=== PATIENT | female | born 1985 | race Caucasian/White ===

== ENCOUNTER 2016-09-07 23:55 | Emergency (ER) | payer OTHER ==
[2016-09-08] MEDS ORDERED: Phenergan 25 MG INJ IM ONE (00:09)
[2016-09-08] MEDS ORDERED: DILAUDID 1 MG/ML INJECTION IM ONE ×2 (00:09→00:26)
[2016-09-08] MEDS ORDERED: Phenergan 25 MG INJ ONE (00:16)
[2016-09-08] MEDS ORDERED: DILAUDID 1 MG/ML INJECTION ONE (00:16)
--- NOTE | 2016-09-08 00:16 | ERPHSYRPT ---
- History of Present Illness Time Seen by Provider: 09/08/16 00:01 Source: patient Exam Limitations: no limitations Patient Subjective Stated Complaint: pt co right side pain in buttocks down right leg for 12 days she has been going to the chiropractor for therapy withut releif tonight the pain in the leg is worse -she is having difficulty wtih walking -the pain is cramping at times 8/10 Triage Nursing Assessment: pt is awake and alert and able to answer questions Physician History: FOR THE PAST 12 DAYS PT HAS HAD RIGHT SIDED BUTTOCK PAIN RADIATING TO THE RIGHT FOOT; DENIES ANY FEVER, VOMITING, ABDOMINAL PAIN, NUMBNESS. PT HAS A HX OF EPISODIC LOW BACK PAIN. Allergies/Adverse Reactions: No Known Drug Allergies Allergy (Unverified 09/08/16 00:16) Hx Tetanus, Diphtheria Vaccination/Date Given: No Hx Influenza Vaccination/Date Given: No Hx Pneumococcal Vaccination/Date Given: No - Review of Systems Constitutional: No Fever Respiratory: No Dyspnea Cardiac: No Chest Pain Abdominal/Gastrointestinal: No Abdominal Pain, No Vomiting Musculoskeletal: Back Pain All Other Systems: Reviewed and Negative - Past Medical History Pertinent Past Medical History: Yes Other Medical History: MS - Past Surgical History Past Surgical History: Yes Gastrointestinal: Cholecystectomy Female Surgical History: Tubal Ligation, Other Other Surgical History: uterine ablasion - Social History Smoking Status: Current every day smoker Exposure to second hand smoke: No Drug Use: none Patient Lives Alone: No - Female History Hx Last Menstrual Period: present - Nursing Vital Signs Pain Intensity: 8 - Physical Exam General Appearance: alert Eye Exam: PERRL/EOMI Ears, Nose, Throat Exam: pharynx normal, moist mucous membranes Neck Exam: normal inspection Respiratory Exam: lungs clear Cardiovascular Exam: normal heart sounds Gastrointestinal Exam: soft, normal bowel sounds Back Exam: No vertebral tenderness Extremity Exam: normal range of motion, No pedal edema Peripheral Pulses: dorsalis-pedis (R): 3+, dorsalis-pedis (L): 3+ Neurologic Exam: alert, cooperative Skin Exam: warm, dry - Course Nursing assessment & vital signs reviewed: Yes Ordered Tests: Active Orders 24 hr Category Date Time Status HCG,QUALITATIVE URINE Stat Lab 09/08/16 00:30 Completed UA Stat Lab 09/08/16 00:30 Completed Medication Summary Discontinued Medications Generic Name Dose Route Start Last Admin Trade Name Freq PRN Reason Stop Dose Admin Hydromorphone HCl 1 mg 09/08/16 00:09 09/08/16 00:31 Dilaudid 1 Mg/Ml Injection IM 09/08/16 00:10 Not Given STAT ONE Hydromorphone HCl Confirm 09/08/16 00:16 Dilaudid 1 Mg/Ml Injection Administered 09/08/16 00:17 Dose 1 mg .ROUTE .STK-MED ONE Hydromorphone HCl 1 mg 09/08/16 00:26 09/08/16 00:31 Dilaudid 1 Mg/Ml Injection IM 09/08/16 00:27 1 mg STAT ONE Administration Promethazine HCl 25 mg 09/08/16 00:09 09/08/16 00:21 Phenergan 25 Mg Inj IM 09/08/16 00:10 25 mg STAT ONE Administration Promethazine HCl Confirm 09/08/16 00:16 Phenergan 25 Mg Inj Administered 09/08/16 00:17 Dose 25 mg .ROUTE .STK-MED ONE Lab/Rad Data: Laboratory Results 09/08/16 09/08/16 Range/Units 00:30 00:30 Ur Collection Type CATH Urine Color YELLOW (YELLOW) Urine Appearance CLEAR (CLEAR) Urine pH 7.0 (5-6) Ur Specific [place] 1.025 (1.005-1.025) Urine Protein NEGATIVE (Negative) Urine Glucose (UA) NEGATIVE (NEGATIVE) mg/dL Urine Ketones NEGATIVE (NEGATIVE) Urine Nitrite NEGATIVE (NEGATIVE) Urine Bilirubin NEGATIVE (NEGATIVE) Urine Urobilinogen 0.2 (0-1) mg/dL Urine WBC (Auto) NEGATIVE (NEGATIVE) Urine RBC (Auto) NEGATIVE (0-5) Eladio/ul Urine HCG, Qual NEGATIVE (Negative) Specimen Received 09/08/16:0030 - Departure Time of Disposition: 01:05 Departure Disposition: Home Clinical Impression: SCIATICA Condition: Fair Critical Care Time: No Referrals: GRACIELA RICHARDS [Primary Care Provider] - Instructions: Sciatica Additional Instructions: FOLLOW UP WITH PRIVATE DOCTOR TOMORROW. DO NOT LIFT, BEND OR TWIST TORSO. Prescriptions: Naproxen [Naprosyn] 500 mg PO Q12H PRN PRN #20 tablet PRN Reason: Pain
[2016-09-08 00:45] VITALS: O2SAT 98
[2016-09-08 00:46] LABS: COMPLETE URINE MICROSCOPIC? NO; Collection Type CATH
[2016-09-08 02:25] VITALS: BP 110/72; PULSE 72
== END 2016-09-08 01:30 | disposition home or self-care (01) ==
LOC: ED 23:55
DX: M54.30 Sciatica, unspecified side (principal)
CPT/HCPCS: 81002; 84703; 96372; 99283; J1170; J2550; P9612

== ENCOUNTER 2017-12-01 23:26 | Observation (INO) | payer OTHER ==
[2017-12-02] MEDS ORDERED: GI COCKTAIL 45 ML (Maalox/Lidocaine) PO ONE (00:07)
[2017-12-02] MEDS ORDERED: NITRO-BID 2% UD PACKETS TOP ONE (00:07)
--- NOTE | 2017-12-02 00:07 | ERPHSYRPT ---
- History of Present Illness Time Seen by Provider: 12/01/17 23:45 Historian: patient Exam Limitations: clinical condition Patient Subjective Stated Complaint: PT STATES "IT FEELS LIKE SOMEONE KICKED ME IN MY LEFT SHOULDER (POSTERIOR), AND THEN I HAVE MORE OF A BURNING PAIN IN MY LEFT LUNG AREA." PT STATES SHE HAS HAD S/S FOR SEVERAL MONTHS, SEEN HER FAMILY DR IN THE PAST, BUT TODAY HER S/S HAVE INCREASED WITH INTENSITY THROUGHOUT THE DAY SO SHE CAME TO THE ER. Triage Nursing Assessment: PT AMBULATED TO ROOM PER SELF; SKIN P, W, & D; A&O X3 ; NO OBVIOUS DISTRESS NOTED; PT DENIES ANY SOB WITH AMBULATION TO ER ROOM. Physician History: PATIENT WITH A HISTORY OF COPD COMPLAINS OF SUBSTERNAL BURNING DISCOMFORT X 6 MONTHS, NOW HAS RADIATION TO LEFT ARM. DENIES DIAPHORESIS, PALPITATIONS OR DYSPNEA. PATIENT COMPLAINS OF PRODUCTIVE COUGH FOR 2-3 DAYS. STATES HER CHEST PAIN EXACERBATED WITH COUGH AND INSPIRATION. Timing/Duration: week(s) Activities at Onset: none Quality: burning, sharpness Location: central Chest Pain Radiation: arm Severity of Pain-Max: moderate Associated Symptoms: heartburn Nitro Today/Relief: no nitro taken today Aspirin Treatment Today: 81 mg x 4, provided by EMS Allergies/Adverse Reactions: No Known Drug Allergies Allergy (Verified 12/01/17 23:44) Home Medications: No Reportable Medications [No Reported Medications] 12/01/17 [History] Hx Tetanus, Diphtheria Vaccination/Date Given: Yes Hx Influenza Vaccination/Date Given: No Hx Pneumococcal Vaccination/Date Given: Yes Immunizations Up to Date: No - Review of Systems Constitutional: No Fever, No Chills Eyes: No Symptoms Ears, Nose, & Throat: No Symptoms Respiratory: Cough, No Dyspnea Cardiac: No Symptoms, No Chest Pain, No Edema, No Syncope Abdominal/Gastrointestinal: No Symptoms, No Abdominal Pain, No Nausea, No Vomiting, No Diarrhea Genitourinary Symptoms: No Symptoms, No Dysuria Musculoskeletal: No Symptoms, No Back Pain, No Neck Pain Skin: No Rash Neurological: No Dizziness, No Focal Weakness, No Sensory Changes Psychological: No Symptoms Endocrine: No Symptoms All Other Systems: Reviewed and Negative - Past Medical History Pertinent Past Medical History: Yes Other Medical History: MS - Past Surgical History Past Surgical History: Yes Gastrointestinal: Cholecystectomy Musculoskeletal: Other Female Surgical History: Tubal Ligation, Other Other Surgical History: uterine ablasion; spinal surgery - Social History Smoking Status: Current every day smoker How long have you smoked: 14 YEARS Exposure to second hand smoke: No Drug Use: none Patient Lives Alone: No - Female History Hx Last Menstrual Period: 11/29/2017 Hx Now: No - Nursing Vital Signs Nursing Vital Signs: Initial Vital Signs Temperature 98.4 F 12/01/17 23:29 Pulse Rate 88 12/01/17 23:29 Respiratory Rate 16 12/01/17 23:29 Blood Pressure 127/78 12/01/17 23:29 O2 Sat by Pulse Oximetry 100 12/01/17 23:29 Pain Scale Pain Intensity 3 - Physical Exam General Appearance: no apparent distress, alert Eye Exam: PERRL/EOMI, eyes nml inspection Ears, Nose, Throat Exam: normal ENT inspection, moist mucous membranes Neck Exam: normal inspection, non-tender, supple, full range of motion Respiratory Exam: normal breath sounds, lungs clear, No respiratory distress Cardiovascular Exam: regular rate/rhythm, normal heart sounds Gastrointestinal/Abdomen Exam: soft, normal bowel sounds, No tenderness, No mass Back Exam: normal inspection, No CVA tenderness, No vertebral tenderness Extremity Exam: normal inspection, normal range of motion Neurologic Exam: alert, oriented x 3, cooperative, normal mood/affect, sensation nml, No motor deficits Skin Exam: normal color, warm, dry SpO2: 100 Oxygen Delivery: Room Air - Course EKG Interpreted by Me: Sinus Rhythm, NORMAL AXIS - Radiology Exams Chest X-ray Interpretation: Interpreted by me, Negative, No Infiltrates Ordered Tests: Active Orders 24 hr Category Date Time Status Sales Marketing Manager STAT Care 12/02/17 00:20 Active EKG-ER Only STAT Care 12/02/17 00:19 Active Oxygen-ED Only NASAL CANNULA 2 lpm Care 12/02/17 00:19 Active CHEST 1 VIEW (PORTABLE) Stat Exams 12/02/17 00:20 Taken BLOOD CULTURE Stat Lab 12/02/17 01:25 Received CBC W DIFF Stat Lab 12/02/17 00:26 Completed CMP Stat Lab 12/02/17 00:26 Completed D-DIMER QUANTITATION Stat Lab 12/02/17 00:38 Completed PROTIME WITH INR Stat Lab 12/02/17 00:38 Completed TROPONIN Q3H Lab 12/02/17 00:26 Completed TROPONIN Q3H Lab 12/02/17 03:30 Ordered TROPONIN Q3H Lab 12/02/17 06:30 Ordered TROPONIN Q3H Lab 12/02/17 09:30 Ordered TROPONIN Q3H Lab 12/02/17 12:30 Ordered Transfer Order Routine Transfer 12/02/17 Ordered Medication Summary Generic Name Dose Route Start Last Admin Trade Name Freq PRN Reason Stop Dose Admin Sodium Chloride 1,000 mls @ 100 mls/hr 12/02/17 00:30 12/02/17 00:32 Sodium Chloride 0.9% 1000 Ml IV 01/01/18 00:29 100 mls/hr .Q10H JULIAN Administration Azithromycin 500 mg in 250 mls @ 250 mls/hr 12/02/17 01:22 Zithromax 500 Mg/ 250 Ml Nacl Premix IV 12/02/17 02:21 STAT STA Discontinued Medications Generic Name Dose Route Start Last Admin Trade Name Freq PRN Reason Stop Dose Admin Al Hydrox/Mg Hydrox/Simethicone Confirm 12/02/17 00:17 Maalox Es 30 Ml Unit Dose Administered 12/02/17 00:18 Dose 30 ml .ROUTE .STK-MED ONE Aspirin 324 mg 12/02/17 00:19 12/02/17 00:26 Baby Aspirin 81 Mg Chew PO 12/02/17 00:20 324 mg STAT ONE Administration Ceftriaxone Sodium/Dextrose 1 g in 50 mls @ 100 mls/hr 12/02/17 01:22 Rocephin 1 Gm-D5w 50 Ml Bag IV 12/02/17 01:51 STAT STA Lidocaine HCl Confirm 12/02/17 00:17 Xylocaine Hcl Viscous * Administered 12/02/17 00:18 Dose 15 ml .ROUTE .STK-MED ONE Magnesium Hydroxide 45 ml 12/02/17 00:07 12/02/17 00:18 Gi Cocktail 45 Ml (Maalox/Lidocaine) PO 12/02/17 00:08 45 ml STAT ONE Administration Nitroglycerin 1 gm 12/02/17 00:07 12/02/17 00:18 Nitro-Bid 2% Ud Packets TOP 12/02/17 00:08 1 gm STAT ONE Administration Nitroglycerin Confirm 12/02/17 00:12 Nitro-Bid 2% Ud Packets Administered 12/02/17 00:13 Dose 1 gm .ROUTE .STK-MED ONE Nitroglycerin 0.4 mg 12/02/17 00:19 12/02/17 00:26 Nitrostat 0.4 Mg (Ed) SL 12/02/17 00:20 0.4 mg STAT ONE Administration Lab/Rad Data: Laboratory Result Diagrams 12/02/17 00:26 12/02/17 00:26 Laboratory Results 12/02/17 12/02/17 12/02/17 Range/Units 00:38 00:26 00:26 WBC (4.0-10.5) K/mm3 RBC (4.1-5.4) M/mm3 Hgb (12.0-16.0) gm/dl Hct (35-47) % MCV (78-100) fl MCH (26-32) pg MCHC (32-36) g/dl RDW (11.5-14.0) % Plt Count (150-450) K/mm3 MPV (6-9.5) fl Gran % (36.0-66.0) % Eos # (Auto) (0-0.5) Absolute Lymphs (auto) (1.0-4.6) Absolute Monos (auto) (0.0-1.3) Lymphocytes % (24.0-44.0) % Monocytes % (0.0-12.0) % Eosinophils % (0.00-5.0) % Basophils % (0.0-0.4) % Absolute Granulocytes (1.4-6.9) Basophils # (0-0.4) PT 11.7 (9.95-12.35) SECONDS INR 1.05 (0.8-3.0) D-Dimer 215.89 (215-500) ng/mL Sodium 142 (137-145) mmol/L Potassium 3.9 (3.5-5.1) mmol/L Chloride 104 (98-107) mmol/L Carbon Dioxide 26 (22-30) mmol/L Anion Gap 16.0 H (5-15) MEQ/L BUN 13 (7-17) mg/dL Creatinine 0.57 (0.52-1.04) mg/dL Estimated GFR > 60.0 ML/MIN Glucose 101 (74-106) mg/dL Calcium 9.8 (8.4-10.2) mg/dL Total Bilirubin 0.20 (0.2-1.3) mg/dL AST 30 (14-36) U/L ALT 21 (0-35) U/L Alkaline Phosphatase 89 (38-126) U/L Troponin I < 0.012 (0.000-0.034) ng/mL Serum Total Protein 7.6 (6.3-8.2) g/dL Albumin 4.7 (3.5-5.0) g/dL 12/02/17 Range/Units 00:26 WBC 14.4 H (4.0-10.5) K/mm3 RBC 4.96 (4.1-5.4) M/mm3 Hgb 15.8 (12.0-16.0) gm/dl Hct 47.3 H (35-47) % MCV 95.4 (78-100) fl MCH 31.9 (26-32) pg MCHC 33.4 (32-36) g/dl RDW 13.1 (11.5-14.0) % Plt Count 251 (150-450) K/mm3 MPV 11.2 H (6-9.5) fl Gran % 72.8 H (36.0-66.0) % Eos # (Auto) 0.11 (0-0.5) Absolute Lymphs (auto) 3.01 (1.0-4.6) Absolute Monos (auto) 0.76 (0.0-1.3) Lymphocytes % 21.0 L (24.0-44.0) % Monocytes % 5.3 (0.0-12.0) % Eosinophils % 0.8 (0.00-5.0) % Basophils % 0.1 (0.0-0.4) % Absolute Granulocytes 10.46 H (1.4-6.9) Basophils # 0.02 (0-0.4) PT (9.95-12.35) SECONDS INR (0.8-3.0) D-Dimer (215-500) ng/mL Sodium (137-145) mmol/L Potassium (3.5-5.1) mmol/L Chloride (98-107) mmol/L Carbon Dioxide (22-30) mmol/L Anion Gap (5-15) MEQ/L BUN (7-17) mg/dL Creatinine (0.52-1.04) mg/dL Estimated GFR ML/MIN Glucose (74-106) mg/dL Calcium (8.4-10.2) mg/dL Total Bilirubin (0.2-1.3) mg/dL AST (14-36) U/L ALT (0-35) U/L Alkaline Phosphatase (38-126) U/L Troponin I (0.000-0.034) ng/mL Serum Total Protein (6.3-8.2) g/dL Albumin (3.5-5.0) g/dL - Progress Progress: improved Progress Note: 12/02/17 00:23 IV NORMAL SALINE 100ML/HR, CHEWABLE 4 BABY ASA ORALLY, NTG 0.4MG SL, MODERATE RELIEF PAIN SCALE IMPROVED 7/10 TO 2/10, APPLICATION NITROPASTE 1 GM ANTERIOR CHEST WALL, GI COCKTAIL GIVEN. Blood Culture(s) Obtained: Yes Antibiotics given: Yes Discussed with Dr.: Huitron (DISCUSSED WITH DR HUITRON AT 0130 FOR OBSERVATION) - Departure Time of Disposition: 02:00 Departure Disposition: Observation Clinical Impression: ATYPICAL CHEST PAIN, EXACERBATION COPD Condition: Stable Critical Care Time: No Referrals: GRACIELA RICHARDS [Primary Care Provider] -
[2017-12-02] MEDS ORDERED: NITRO-BID 2% UD PACKETS ONE (00:12)
[2017-12-02] MEDS ORDERED: XYLOCAINE HCl Viscous ONE (00:17)
[2017-12-02] MEDS ORDERED: MAALOX ES 30 ML UNIT DOSE ONE (00:17)
[2017-12-02] MEDS ORDERED: Nitrostat 0.4 MG (ED) SL ONE (00:19)
[2017-12-02] MEDS ORDERED: BABY ASPIRIN 81 MG CHEW PO ONE (00:19)
[2017-12-02] MEDS ORDERED: Sodium Chloride 0.9% 1000 ML 1,000 ML ONE (00:29)
[2017-12-02] MEDS ORDERED: Sodium Chloride 0.9% 1000 ML 1,000 ML IV SCH (00:30)
[2017-12-02 00:51] LABS: BASOPHIL % 0.1 % (0.0-0.4); Basophil (Absolute #) 0.02 (0-0.4); Eosinophil % 0.8 % (0.00-5.0); Eosinophil (Absolute #) 0.11 (0-0.5); Granulocyte Absolute (ANC) 10.46 (1.4-6.9); Granulocytes % 72.8 % (36.0-66.0); Hematocrit 47.3 % (35-47); Hemoglobin 15.8 gm/dl (12.0-16.0); Lymphocyte (Absolute #) 3.01 (1.0-4.6); Mean Cell Volume 95.4 fl (78-100); Mean Corpuscular Hemoglobin 31.9 pg (26-32); Mean Corpuscular Hgb Concent. 33.4 g/dl (32-36); Mean Platelet Volume 11.2 fl (6-9.5); Monocyte (Absolute #) 0.76 (0.0-1.3); Monocytes % 5.3 % (0.0-12.0); Platelet Count 251 K/mm3 (150-450); Red Blood Count 4.96 M/mm3 (4.1-5.4); Red Cell Distribution Width 13.1 % (11.5-14.0); White Blood Count 14.4 K/mm3 (4.0-10.5)
[2017-12-02 00:56] LABS: ALBUMIN 4.7 g/dL (3.5-5.0); ALKALINE PHOSPHATASE 89 U/L (38-126); BLOOD UREA NITROGEN 13 mg/dL (7-17); CHLORIDE 104 mmol/L (98-107); Calcium 9.8 mg/dL (8.4-10.2); Carbon Dioxide 26 mmol/L (22-30); Creatinine 1 0.57 mg/dL (0.52-1.04); Glucose 101 mg/dL (74-106); Potassium 3.9 mmol/L (3.5-5.1); SGOT/AST 30 U/L (14-36); SGPT/ALT 21 U/L (0-35); SODIUM 142 mmol/L (137-145); Total Protein 7.6 g/dL (6.3-8.2)
[2017-12-02 01:03] LABS: INR 1.05 (0.8-3.0)
[2017-12-02 01:04] LABS: D-DIMER QUANTITATION 215.89 ng/mL (215-500)
[2017-12-02] MEDS ORDERED: Zithromax 500 MG/ 250 ML NaCl Premix 500 MG/250 ML IVPB IV STA (01:22)
[2017-12-02] MEDS ORDERED: ROCEPHIN 1 Gm-D5w 50 ml Bag** 1 G/50 ML IVPB IV STA (01:22)
[2017-12-02] MEDS ORDERED: Sodium Chloride 0.9% 100 ML IVPB 100 ML IV ONE (02:02)
[2017-12-02] MEDS ORDERED: Rocephin 1000 MG INJ ONE (02:02)
[2017-12-02] MEDS ORDERED: MILK OF MAGNESIA 30 ML PO PRN (04:17)
[2017-12-02] MEDS ORDERED: DUONEB 0.5-3 MG/3 ml Neb IH PRN (04:17)
[2017-12-02] MEDS ORDERED: MAALOX ES 30 ML UNIT DOSE PO PRN (04:17)
[2017-12-02] MEDS ORDERED: Senokot-S Tablet PO PRN (04:17)
[2017-12-02] MEDS ORDERED: Zofran 4 MG/2 ML VIAL IV PRN (04:17)
[2017-12-02] MEDS ORDERED: Nitrostat 0.4 MG Tablet SL PRN (04:17)
[2017-12-02] MEDS ORDERED: TYLENOL 325 MG PO PRN (04:17)
[2017-12-02] MEDS ORDERED: NITRO-BID 2% UD PACKETS TOP SCH (06:00)
[2017-12-02 07:36] VITALS: BP 110/63; PULSE 70; O2SAT 98
[2017-12-02] MEDS ORDERED: TORAdol 30 mg Injection IV PRN (08:23)
--- NOTE | 2017-12-02 08:29 | PCM.SSS ---
History of Present Illness - Chief Complaint Chief Complaint: ATYPICAL CHEST PAIN History of Present Illness: is a 32 year old femal pt of mine from [facility], has been having L sided chest pain radiating to L shoulder for some time (well over a month) - generally sharp, intermittent, up to 7/10. This pain was burning and constant 6 /10 yesterday in L chest since 8 am so she came to ER, was ruled out for AK and given 1 dose rocephin and zithromax. CXR nl. 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 Dr. Zamorano's nurse practitioner dx her with COPD and PNA and gave her augmentin x 10d, but she was only able to tolerate 7d of this (finished the abx 2 weeks ago). Pt was supposed to be checked for [id number] deficiency but she has not had the blood test done yet. She would like to quit smoking. - Review of Systems Respiratory: Cough (some production of sputum) Cardiac: Chest Pain All Other Systems: Reviewed and Negative Medications & Allergies Home Medications: Home Medication List Albuterol Sulfate [Albuterol Sulfate Hfa] 8.5 gm IH Q4H PRN #1 hfa.aer.ad [Rx] Cefdinir 300 mg [Omnicef 300 mg] 300 mg PO BID #20 capsule 12/02/17 [Rx] Patient Own Med [Patient Own Medication] 2 tab PO BID 12/02/17 [History Confirmed 12/02/17] Varenicline Tartrate [Chantix] 1 each PO DAILY #1 tab.ds.pk 12/02/17 [Rx] Allergies/Adverse Reactions: Allergies Allergy/AdvReac Type Severity Reaction Status Date / Time No Known Drug Allergies Allergy Verified 12/01/17 23:44 - Past Medical History Past Medical History: Yes Neurological History: No Pertinent History ENT History: No Pertinent History Cardiac History: No Pertinent History Respiratory History: COPD, Pneumonia Endocrine Medical History: No Pertinent History Musculoskelatal History: No Pertinent History GI Medical History: No Pertinent History History: No Pertinent History Pyscho-Social History: No Pertinent History Reproductive Disorders: No Pertinent History Comment: MS-patient states does not currently have. had it for about 5 years and it disappeared. meningitis 2000 - Female History Hx Last Menstrual Period: 11/29/2017 Are you now?: No (tubal) - Past Surgical History Past Surgical History: Yes Neuro Surgical History: No Pertinent History Cardiac History: No Pertinent History Respiratory Surgery: No Pertinent History GI Surgical History: Cholecystectomy Genitourinary Surgical Hx: No Pertinent History Musculskeletal Surgical Hx: Other Female Surgical History: Tubal Ligation, Other Other Surgical History: uterine ablasion; spinal surgery, half of thryroid removed 2003 - Social History Smoking Status: Current every day smoker How long have you smoked: 14 years Exposure to second hand smoke: Yes Alcohol: None Drug Use: none - Physical Exam Vital Signs: Vital Signs - 24 hr Temp Pulse Resp BP Pulse Ox 12/02/17 07:35 98.2 F 70 18 110/63 98 12/02/17 05:20 71 16 97 12/02/17 04:30 97.8 F 63 18 122/69 97 12/02/17 02:05 100 12/02/17 00:35 84 13 107/65 99 12/01/17 23:29 98.4 F 88 16 127/78 100 Oxygen-Last 24 hours O2 Percentage 2 Liters = 28% O2 Percentage 2 Liters = 28% General Appearance: no apparent distress, alert Neurologic Exam: oriented x 3, cooperative Eye Exam: eyes nml inspection Ears, Nose, Throat Exam: moist mucous membranes Neck Exam: normal inspection, non-tender, No lymphadenopathy Respiratory Exam: normal breath sounds, lungs clear, No crackles/rales, No rhonchi, No wheezing Cardiovascular Exam: regular rate/rhythm, normal heart sounds, No murmur Gastrointestinal/Abdomen Exam: soft, normal bowel sounds, No tenderness, No distention, No mass, No guarding, No rebound Back Exam: normal inspection, No rash Extremity Exam: normal inspection, No pedal edema, No swelling Skin Exam: normal color, warm, dry, No rash Results - Labs Lab/Micro Results: Lab Results-Last 24 Hours 12/02/17 Range/Units 06:33 Troponin I < 0.012 (0.000-0.034) ng/mL - Other Procedures and Tests Respiratory Therapy 12/02/17 05:20 Respiratory Nebulizer UD 12/03/17 05:00 EKG ROUTINE 12/04/17 05:00 EKG ROUTINE 12/05/17 05:00 EKG ROUTINE Assessment/Plan (1) Chest pain Current Visit: Yes Status: Acute Qualifiers: Chest pain type: unspecified Qualified Code(s): R07.9 - Chest pain, unspecified Assessment & Plan: Troponins are negative x 3; with the time course of her pain, AK has effectively been ruled out. EKG no acute changes. Trying toradol today in the event she has some pleurisy. Code(s): R07.9 - CHEST PAIN, UNSPECIFIED (2) Tobacco abuse Current Visit: Yes Status: Acute Assessment & Plan: Will start chantix on discharge Code(s): Z72.0 - TOBACCO USE (3) COPD (chronic obstructive pulmonary disease) Current Visit: Yes Status: Acute Qualifiers: Chronic bronchitis type: unspecified Assessment & Plan: per pulmonology, thank you. Will go ahead and treat with 10d of cefdinir, but would like for her to f/u with pulmonology in the next week or two (instead of her regularly scheduled appt in December). Hospital Summary - Vitals & Intake/Output Vital Signs: Vital Signs Temperature 98.2 F 12/02/17 07:35 Pulse Rate 70 12/02/17 07:35 Respiratory Rate 18 12/02/17 07:35 Blood Pressure 110/63 12/02/17 07:35 O2 Sat by Pulse Oximetry 98 12/02/17 07:35 Oxygen-Last Documented O2 Percentage 2 Liters = 28% Intake & Output: Intake & Output 11/29/17 11/30/17 12/01/17 12/02/17 11:59 11:59 11:59 11:59 Weight 123.1 kg - Lab Result Diagrams: 12/02/17 00:26 12/02/17 00:26 Lab Results-Last 24 Hrs: Lab Results-Last 24 Hours 12/02/17 Range/Units 06:33 Troponin I < 0.012 (0.000-0.034) ng/mL - Procedures and Test Procedures and Tests throughout Hospitalization: Therapy Orders & Screens 12/02/17 04:48 Smoking Cessation Education ONCE Comment: Diagnosis: ATYPICAL CHEST PAIN Smoking Status: Current every day smoker How long have you smoked: 14 years Approximately how many cigarettes per day: less than 1/2 pack 12/02/17 05:20 Respiratory Nebulizer UD Comment: DUONEB Q4PRN Diagnosis: ATYPICAL CHEST PAIN 12/02/17 07:11 EKG ROUTINE Comment: Diagnosis: ATYPICAL CHEST PAIN 12/03/17 05:00 EKG ROUTINE Comment: Diagnosis: ATYPICAL CHEST PAIN 12/04/17 05:00 EKG ROUTINE Comment: Diagnosis: ATYPICAL CHEST PAIN 12/05/17 05:00 EKG ROUTINE Comment: Diagnosis: ATYPICAL CHEST PAIN - Discharge Disposition: Home, Self-Care Condition: Good Prescriptions: New Albuterol Sulfate [Albuterol Sulfate Hfa] 8.5 gm IH Q4H PRN #1 hfa.aer.ad PRN Reason: Cough Varenicline Tartrate [Chantix] 1 each PO DAILY #1 tab.ds.pk Cefdinir 300 mg [Omnicef 300 mg] 300 mg PO BID #20 capsule Continue Patient Own Med [Patient Own Medication] 2 tab PO BID Follow up with: GRACIELA RICHARDS [Primary Care Provider] - 1 Week
--- NOTE | 2017-12-02 09:08 | XRAY ---
Indication: Dyspnea. Comparison: September 23, 2017. Portable apical lordotic chest again demonstrates normal heart, lungs, and bony thorax with incidental lower neck surgical clips.
[2017-12-02] MEDS ORDERED: Zithromax 500 MG/ 250 ML NaCl Premix 500 MG/250 ML IVPB IV SCH (10:00)
[2017-12-02] MEDS ORDERED: Ecotrin 325 MG PO SCH (10:00)
[2017-12-02] MEDS ORDERED: ROCEPHIN 1 Gm-D5w 50 ml Bag** 1 G/50 ML IVPB IV SCH (22:00)
[2017-12-03] MEDS ORDERED: Zithromax 500 MG/ 250 ML NaCl Premix 500 MG/250 ML IVPB IV SCH (06:00)
== END 2017-12-02 11:10 | disposition home or self-care (01) ==
LOC: ED 23:26 → MED SURG 12-02 03:52 → INTOOBSV 12-02 03:52
PROVIDERS: ADMIT Family Medicine; ATTEND Family Medicine
DX: R07.9 Chest pain, unspecified (principal); Z72.0 Tobacco use; J44.1 Chronic obstructive pulmonary disease with (acute) exacerbation
CPT/HCPCS: 36000; 36415; 71045; 80053; 84484; 85025; 85379; 85610; 87040; 93005; 93041; 93268; 94760; 96360; 96361; 99284; 99285; J0456; J0696; J1885; A9270-GY; G0378

== ENCOUNTER 2025-06-19 10:35 | Observation (INO) | payer BC ==
--- NOTE | 2025-06-19 12:08 | ERPHSYRPT ---
- History of Present Illness Patient Subjective Stated Complaint: Pt. states, "I have had some pain my right side on and off for a few weeks but 4 days ago I started having pain in my rt. lower abdomen and it just keeps getting worse. It hurts worse when i'm moving around." Triage Nursing Assessment: Pt. ambulated to room without difficulty, A&Ox4, Skin P/W/D, Resp. even unlabored, abdomen soft, rebound tenderness in rt. lower quad., Physician History: Abdominal pain, onset of symptoms several weeks but progressively worse over the last 4 days, she denies any urinary symptoms including dysuria, she had any change in her bowels, Denies fever, Denies new vaginal discharge Timing/Duration: day(s) (4) Activities at Onset: none Abdominal Pain Onset Location: RLQ Pain Radiation: no radiation Severity of Pain-Max: moderate Severity of Pain-Current: moderate Modifying Factors: Improves With: nothing Associated Symptoms: denies symptoms Allergies/Adverse Reactions: No Known Drug Allergies Allergy (Verified 12/01/17 23:44) Home Medications: No Reportable Medications [No Reported Medications] 06/19/25 [History] Hx Tetanus, Diphtheria Vaccination/Date Given: Yes Hx Influenza Vaccination/Date Given: No Hx Pneumococcal Vaccination/Date Given: Yes Travel Risk - International Travel Have you traveled outside of the country in past 3 weeks: No - Emerging Infectious Disease Are you exhibiting symptoms associated with any current EIDs: No - Past Medical History Pertinent Past Medical History: Yes Neurological History: No Pertinent History ENT History: No Pertinent History Cardiac History: No Pertinent History Respiratory History: COPD Endocrine Medical History: No Pertinent History Musculoskeletal History: Degenerative Disk Disease GI Medical History: No Pertinent History History: No Pertinent History Psycho-Social History: No Pertinent History Female Reproductive Disorders: No Pertinent History Other Medical History: MS-patient states does not currently have. had it for about 5 years and it disappeared. meningitis 2000 - Past Surgical History Past Surgical History: Yes Neuro Surgical History: No Pertinent History Cardiac: No Pertinent History Respiratory: No Pertinent History Gastrointestinal: Cholecystectomy Genitourinary: No Pertinent History Musculoskeletal: Other Female Surgical History: Tubal Ligation, Other Other Surgical History: uterine ablasion; spinal surgery, half of thryroid removed 2003 - Female History Hx Last Menstrual Period: LAST MONTH Hx Now: No - Social History Smoking Status: Former smoker Exposure to second hand smoke: Yes Drug Use: none - Social Determinants of Health Will the patient participate in the screening: Declined to provide - Nursing Vital Signs Nursing Vital Signs: Initial Vital Signs Temperature 97.7 F 06/19/25 10:35 Pulse Rate 81 06/19/25 10:35 Respiratory Rate 18 06/19/25 10:35 Blood Pressure 110/68 06/19/25 10:35 O2 Sat by Pulse Oximetry 96 06/19/25 10:35 Pain Scale Pain Intensity 5 - Physical Exam General Appearance: no apparent distress, alert, obese Eye Exam: PERRL/EOMI, eyes nml inspection Ears, Nose, Throat Exam: normal ENT inspection, pharynx normal, moist mucous membranes Neck Exam: normal inspection, non-tender, supple, full range of motion Respiratory Exam: normal breath sounds, lungs clear, No respiratory distress Cardiovascular Exam: regular rate/rhythm, normal heart sounds Gastrointestinal/Abdomen Exam: soft, tenderness, No mass, No guarding, No rebound Back Exam: normal inspection, normal range of motion, No CVA tenderness, No vertebral tenderness Extremity Exam: normal inspection, normal range of motion, pelvis stable Neurologic Exam: alert, oriented x 3, cooperative, normal mood/affect, nml cerebellar function, sensation nml, No motor deficits Skin Exam: normal color, warm, dry SpO2 Interpretation: normal SpO2: 97 Ordered Tests: Active Orders 24 hr Category Date Time Status IV Insertion STAT Care 06/19/25 11:48 Active ABDOMEN AND PELVIS W CONTRAST [CT] Stat Exams 06/19/25 11:49 Completed CBC W DIFF Stat Lab 06/19/25 12:15 Completed CMP Stat Lab 06/19/25 12:15 Completed LIPASE Stat Lab 06/19/25 12:15 Completed UA W/RFX UR CULTURE Stat Lab 06/19/25 11:49 Completed Medication Summary Discontinued Medications Generic Name Dose Route Start Last Admin Trade Name Freq PRN Reason Stop Dose Admin Morphine Sulfate 4 mg 06/19/25 14:06 06/19/25 14:18 Morphine Sulfate 4 Mg/Ml Injection IV 06/19/25 14:07 4 mg STAT ONE Administration Morphine Sulfate Confirm 06/19/25 14:14 Morphine Sulfate 4 Mg/Ml Injection Administered 06/19/25 14:15 Dose 4 mg .ROUTE .STK-MED ONE Ondansetron HCl 4 mg 06/19/25 14:06 06/19/25 14:17 Ondansetron Hcl 4 Mg/2 Ml Vial IV 06/19/25 14:07 4 mg STAT ONE Administration Ondansetron HCl Confirm 06/19/25 14:14 Ondansetron Hcl 4 Mg/2 Ml Vial Administered 06/19/25 14:15 Dose 4 mg .ROUTE .STK-MED ONE Lab/Rad Data: Laboratory Result Diagrams 06/19/25 12:15 06/19/25 12:15 Laboratory Results 06/19/25 06/19/25 06/19/25 Range/Units 12:15 12:15 11:49 WBC 10.4 H (3.98-10.04) x10^3/uL RBC 4.92 (3.93-5.22) x10^6/uL Hgb 14.6 (11.2-15.7) g/dL Hct 46.0 H (34.1-44.9) % MCV 93.5 (79.4-94.8) fL MCH 29.7 (25.6-32.2) pg MCHC 31.7 L (32.2-35.5) g/dL RDW 12.8 (11.7-14.4) % Plt Count 272 (182-369) x10^3/uL MPV 9.7 (9.4-12.3) fL Gran % 73.6 H (34.0-71.1) % Immature Gran % (Auto) 0.2 (0.001-0.429) % Nucleat RBC Rel Count 0.0 (0.00-0.2) % Eos # (Auto) 0.15 (0.04-0.36) x10^3/uL Immature Gran # (Auto) 0.02 (0.001-0.031) x10^3u/L Absolute Lymphs (auto) 1.98 (1.18-3.74) x10^3/uL Absolute Monos (auto) 0.56 (0.24-0.86) x10^3/uL Absolute Nucleated RBC 0.00 (0.00-0.012) x10^3u/L Lymphocytes % 19.1 L (19.3-51.7) % Monocytes % 5.4 (4.7-12.5) % Eosinophils % 1.4 (0.7-5.8) % Basophils % 0.3 (0.1-1.2) % Absolute Granulocytes 7.62 H (1.56-6.13) x10^3/uL Basophils # 0.03 (0.01-0.08) x10^3/uL Sodium 135 (135-145) mmol/L Potassium 4.0 (3.5-5.1) mmol/L Chloride 106 (98-107) mmol/L Carbon Dioxide 23 (22-30) mmol/L Anion Gap 10.0 (5-15) MEQ/L BUN 11 (7-17) mg/dL Creatinine 0.55 (0.52-1.04) mg/dL Estimated GFR 120.3 ML/MIN Glucose 101 (74-106) mg/dL Calcium 8.9 (8.4-10.2) mg/dL Total Bilirubin 0.40 (0.2-1.3) mg/dL AST 30 (14-36) U/L ALT 37 H (0-35) U/L Alkaline Phosphatase 112 (38-126) U/L Serum Total Protein 7.6 (6.3-8.2) g/dL Albumin 4.5 (3.5-5.0) g/dL Lipase 40 (23-300) U/L Urine Color Yellow (Yellow) Urine Appearance Clear (Clear) Urine pH 5.5 (4.6-8.0) Ur Specific [place] 1.010 (1.005-1.030) Urine Protein Negative (Negative) Urine Glucose (UA) Negative (Negative) mg/dL Urine Ketones Negative (Negative) Urine Blood Negative (Negative) Urine Nitrite Negative (Negative) Urine Bilirubin Negative (Negative) Urine Urobilinogen 0.2 (0.2) mg/dL Ur Leukocyte Esterase Negative (Negative) U Hyaline Cast (Auto) NONE SEEN (0-2) /LPF Urine Microscopic RBC 0-2 (0-5) /HPF Urine Microscopic WBC 0-2 (0-5) /HPF Ur Epithelial Cells Few (None Seen) /HPF Urine Bacteria None Seen (None Seen) /HPF Urine Culture Reflexed NO (NO) - Progress Progress Note: 06/19/25 14:[address] and lab results, consulted general surgery, [facility] - Departure Departure Disposition: Observation Clinical Impression: Appendicitis, acute Qualifiers: Acute appendicitis type: unspecified acute appendicitis type Qualified Code(s): K35.80 - Unspecified acute appendicitis Condition: Stable Critical Care Time: No Referrals: GRACIELA JARAMILLO [Primary Care Provider, [facility]] - Follow up/PCP as directed
[2025-06-19 12:16] LABS: BASOPHIL % 0.3 % (0.1-1.2); Basophil (Absolute #) 0.03 x10^3/uL (0.01-0.08); Eosinophil (Absolute #) 0.15 x10^3/uL (0.04-0.36); Hematocrit 46.0 % (34.1-44.9); Hemoglobin 14.6 g/dL (11.2-15.7); IMMATURE GRAN # 0.02 x10^3u/L (0.001-0.031); IMMATURE GRAN % 0.2 % (0.001-0.429); Lymphocyte (Absolute #) 1.98 x10^3/uL (1.18-3.74); Mean Corpuscular Hemoglobin 29.7 pg (25.6-32.2); Mean Corpuscular Hgb Concent. 31.7 g/dL (32.2-35.5); Monocyte (Absolute #) 0.56 x10^3/uL (0.24-0.86); NUCLEATED RBC # 0.00 x10^3u/L (0.00-0.012); NUCLEATED RBC % 0.0 % (0.00-0.2); Platelet Count 272 x10^3/uL (182-369); Red Blood Count 4.92 x10^6/uL (3.93-5.22); White Blood Count 10.4 x10^3/uL (3.98-10.04)
[2025-06-19 12:44] LABS: Calcium 8.9 mg/dL (8.4-10.2); Carbon Dioxide 23.0 mmol/L (22-30); Creatinine 1 0.55 mg/dL (0.52-1.04); EST GLOMERULAR FILTRATION RATE 120.3 ML/MIN; Glucose 101.0 mg/dL (74-106); Potassium 4.0 mmol/L (3.5-5.1); SGOT/AST 30.0 U/L (14-36); SGPT/ALT 37.0 U/L (0-35); Total Protein 7.6 g/dL (6.3-8.2)
[2025-06-19 13:00] LABS: Glucose, Urine Negative (Negative); Protein,Urine Dip Negative (Negative); RBC 0-2 /HPF (0-5); WBC 0-2 /HPF (0-5)
[2025-06-19] MEDS ORDERED: MORPHINE SULFATE 4 MG INJ ONE (14:14)
[2025-06-19] MEDS ORDERED: Zofran 4 MG/2 ML VIAL ONE (14:14)
[2025-06-19] MEDS: Zofran 4 MG/2 ML VIAL IV ONE (14:17)
[2025-06-19] MEDS: MORPHINE SULFATE 4 MG INJ IV ONE (14:18)
--- NOTE | 2025-06-19 14:21 | XRAY ---
CLINICAL HISTORY: rlq abd pain COMPARISON: No prior studies are available for comparison. TECHNIQUE: CT of the abdomen and pelvis was performed with and without contrast, using the following protocol: axial images with reconstructed coronal and sagittal images. 80 cc isovue intravenous contrast was administered. One of the following dose reduction techniques was utilized for this exam: automated exposure control, adjustment of the mA and/or kV according to patient size, and use of iterative reconstruction. DLP: 2774.66 mGy.cm FINDINGS: Abdomen: Liver: The liver is mildly enlarged in size and shows homogeneous low attenuation, with a [place] tail variant. No focal lesions, cysts, or masses are identified. The hepatic vasculature and biliary ducts are unremarkable. Gallbladder and Biliary System: The gallbladder has been surgically removed, with noted operative bed surgical clips. The common bile duct is normal in caliber and shows no dilation. Pancreas: The pancreatic head, body, and tail are visualized and appear normal in size and density. No pancreatic masses or calcifications are noted. The pancreatic duct is not dilated. Spleen: The spleen is normal in size, shape, and density. No splenic lesions or masses are identified. Appendix: The appendix is mildly enlarged in size, measuring about 9 mm in caliber, and shows smudging of the periappendiceal fat planes with a few small reactive regional lymph nodes. There is no evidence of appendiceal abscess or perforation. Kidneys and Adrenal Glands: Both kidneys are normal in size, shape, and position. The cortical thickness is within normal limits. No renal calculi or hydronephrosis are present. The left kidney shows an upper pole exophytic lesion with fat density, measuring about 3.7 x 2.7 cm. The adrenal glands are unremarkable with no evidence of masses or hyperplasia. Pelvis: Urinary Bladder: The urinary bladder is normal in contour and wall thickness. No intraluminal lesions are identified. Uterus: The uterus is normal in size and contour. No masses or abnormal thickening are seen. Ovaries: The ovaries are not well visualized, but no gross abnormalities are noted. Peritoneal and Retroperitoneal Structures: No free fluid or abnormal fluid collections are identified within the abdomen or pelvis. Bowel: The visualized bowel loops are normal in caliber and appearance. There is no evidence of bowel obstruction or wall thickening. There is non-complicated sigmoid diverticulosis. Bones and Soft Tissues: The pelvic bones and soft tissues are unremarkable. No fractures or abnormal masses are identified. There is mild retrolisthesis of the L4 over the L5 vertebral body and narrowing of the L4-L5 intervertebral disc with vacuum phenomena. Small nodules are seen in the right lower lung lobe, with a small calcified granuloma and a calcified posterior mediastinal lymph node. IMPRESSION: 1. The appendix is mildly enlarged in size, showing smudging of the periappendiceal fat planes and a few small reactive regional lymph nodes, suggesting non-complicated acute appendicitis. Correlation with clinical and laboratory findings is recommended. 2. Mild fatty hepatomegaly. 3. Left renal upper pole exophytic lesion with fat density, likely angiomyolipoma. 4. Small nodules in the right lower lung lobe, a small calcified granuloma, and a calcified posterior mediastinal lymph node. 5. Non-complicated sigmoid diverticulosis. Electronically Signed by: Efe Peres MD. (06/19/2025 14:20:34 EST)
--- NOTE | 2025-06-19 16:17 | PCM.HP ---
History of Present Illness - Chief Complaint Chief Complaint: appendicitis Date: 06/19/25 History of Present Illness: is a 39 year old female with a pmhx of COPD (on RA at baseline), and prior thyroid cancer s/p partial thyroidectomy in 2000 (no home meds) who presented to the emergency department on , with complaints of right lower quadrant abdominal pain. She reports the pain began abruptly on and has progressively worsened. She describes the pain as moderate, stabbing and constant with radiation to mid epigastric region. The pain intensifies with movement or lying flat and improves when standing. She denies associated nausea, fever, vomiting, chest pain, dyspnea, dizziness, headache, or bowel changes. On presentation, vital signs were stable. Laboratory evaluation revealed mild leukocytosis with WBC 10.4; CMP unremarkable. Urinalysis was negative for infection or hematuria. CT abdomen and pelvis demonstrated a mildly enlarged appendix with periappendiceal fat stranding and small reactive lymph nodes consistent with uncomplicated acute appendicitis. Additional findings included mild fatty hepatomegaly, a small left upper pole renal angiomyolipoma, right lower lobe calcified granuloma, calcified posterior mediastinal lymph node, and uncomplicated sigmoid diverticulosis. In the emergency department, the patient received IV fluids, morphine for analgesia, and ondansetron for nausea. General surgery was consulted, and operative management was planned. - Review of Systems Constitutional: No Symptoms Eyes: No Symptoms Ears, Nose, & Throat: No Symptoms Respiratory: No Symptoms Cardiac: No Symptoms Abdominal/Gastrointestinal: Abdominal Pain (RLQ with radiation to mid-epigastric region, no guarding, no rebound tenderness) Genitourinary Symptoms: No Symptoms Musculoskeletal: No Symptoms Skin: No Symptoms Neurological: No Symptoms Psychological: No Symptoms Endocrine: No Symptoms Hematologic/Lymphatic: No Symptoms Immunological/Allergic: No Symptoms Medications & Allergies Home Medications: Home Medication List No Reportable Medications [No Reported Medications] 06/19/25 [History Confirmed 06/19/25] Allergies/Adverse Reactions: Allergies Allergy/AdvReac Type Severity Reaction Status Date / Time No Known Drug Allergies Allergy Verified 12/01/17 23:44 - Past Medical History Past Medical History: Yes Neurological History: No Pertinent History ENT History: No Pertinent History Cardiac History: No Pertinent History Respiratory History: COPD Endocrine Medical History: No Pertinent History Musculoskelatal History: Degenerative Disk Disease GI Medical History: No Pertinent History History: No Pertinent History Pyscho-Social History: No Pertinent History Reproductive Disorders: No Pertinent History Comment: MS-patient states does not currently have. had it for about 5 years and it disappeared. meningitis 2000 - Female History Hx Last Menstrual Period: LAST MONTH Are you now?: No - Past Surgical History Past Surgical History: Yes Neuro Surgical History: No Pertinent History Cardiac History: No Pertinent History Respiratory Surgery: No Pertinent History GI Surgical History: Cholecystectomy Genitourinary Surgical Hx: No Pertinent History Musculskeletal Surgical Hx: Other Female Surgical History: Tubal Ligation, Other Other Surgical History: uterine ablasion; spinal surgery, half of thryroid removed 2003 Significant Family History: cancer, diabetes, stroke - Social History Smoking Status: Former smoker How long have you smoked: 14 years Exposure to second hand smoke: Yes Alcohol: None Drug Use: none - Social Determinants of Health Will the patient participate in the screening: Declined to provide - Physical Exam Vital Signs: Vital Signs - 24 hr Temp Pulse Resp BP BP Pulse Ox 06/19/25 15:00 75 18 122/65 95 06/19/25 14:49 97 06/19/25 14:31 94/40 97 06/19/25 14:30 97 06/19/25 14:20 96 06/19/25 14:10 96 06/19/25 14:02 78 97 06/19/25 13:30 114/60 95 06/19/25 13:17 80 109/57 97 06/19/25 13:16 97 06/19/25 12:30 79 125/75 06/19/25 12:27 82 18 115/75 98 06/19/25 12:01 78 18 96/57 99 06/19/25 11:31 80 18 93/58 97 06/19/25 10:35 97.7 F 81 18 110/68 96 General Appearance: no apparent distress Neurologic Exam: alert, oriented x 3, cooperative Eye Exam: PERRL/EOMI Ears, Nose, Throat Exam: normal ENT inspection Neck Exam: normal inspection Respiratory Exam: normal breath sounds, lungs clear Cardiovascular Exam: regular rate/rhythm, normal heart sounds Gastrointestinal/Abdomen Exam: tenderness (RLQ), No mass, No guarding, No rebound Pelvic Exam: not done Rectal Exam: deferred Back Exam: normal inspection Extremity Exam: normal inspection Skin Exam: normal color Results - Labs Lab/Micro Results: Lab Results-Last 24 Hours 06/19/25 06/19/25 06/19/25 Range/Units 11:49 12:15 12:15 WBC 10.4 H (3.98-10.04) x10^3/uL RBC 4.92 (3.93-5.22) x10^6/uL Hgb 14.6 (11.2-15.7) g/dL Hct 46.0 H (34.1-44.9) % MCV 93.5 (79.4-94.8) fL MCH 29.7 (25.6-32.2) pg MCHC 31.7 L (32.2-35.5) g/dL RDW 12.8 (11.7-14.4) % Plt Count 272 (182-369) x10^3/uL MPV 9.7 (9.4-12.3) fL Gran % 73.6 H (34.0-71.1) % Immature Gran % (Auto) 0.2 (0.001-0.429) % Nucleat RBC Rel Count 0.0 (0.00-0.2) % Eos # (Auto) 0.15 (0.04-0.36) x10^3/uL Immature Gran # (Auto) 0.02 (0.001-0.031) x10^3u/L Absolute Lymphs (auto) 1.98 (1.18-3.74) x10^3/uL Absolute Monos (auto) 0.56 (0.24-0.86) x10^3/uL Absolute Nucleated RBC 0.00 (0.00-0.012) x10^3u/L Lymphocytes % 19.1 L (19.3-51.7) % Monocytes % 5.4 (4.7-12.5) % Eosinophils % 1.4 (0.7-5.8) % Basophils % 0.3 (0.1-1.2) % Absolute Granulocytes 7.62 H (1.56-6.13) x10^3/uL Basophils # 0.03 (0.01-0.08) x10^3/uL Sodium 135 (135-145) mmol/L Potassium 4.0 (3.5-5.1) mmol/L Chloride 106 (98-107) mmol/L Carbon Dioxide 23 (22-30) mmol/L Anion Gap 10.0 (5-15) MEQ/L BUN 11 (7-17) mg/dL Creatinine 0.55 (0.52-1.04) mg/dL Estimated GFR 120.3 ML/MIN Glucose 101 (74-106) mg/dL Calcium 8.9 (8.4-10.2) mg/dL Total Bilirubin 0.40 (0.2-1.3) mg/dL AST 30 (14-36) U/L ALT 37 H (0-35) U/L Alkaline Phosphatase 112 (38-126) U/L Serum Total Protein 7.6 (6.3-8.2) g/dL Albumin 4.5 (3.5-5.0) g/dL Lipase 40 (23-300) U/L Urine Color Yellow (Yellow) Urine Appearance Clear (Clear) Urine pH 5.5 (4.6-8.0) Ur Specific [place] 1.010 (1.005-1.030) Urine Protein Negative (Negative) Urine Glucose (UA) Negative (Negative) mg/dL Urine Ketones Negative (Negative) Urine Blood Negative (Negative) Urine Nitrite Negative (Negative) Urine Bilirubin Negative (Negative) Urine Urobilinogen 0.2 (0.2) mg/dL Ur Leukocyte Esterase Negative (Negative) U Hyaline Cast (Auto) NONE SEEN (0-2) /LPF Urine Microscopic RBC 0-2 (0-5) /HPF Urine Microscopic WBC 0-2 (0-5) /HPF Ur Epithelial Cells Few (None Seen) /HPF Urine Bacteria None Seen (None Seen) /HPF Urine Culture Reflexed NO (NO) - Radiology Impressions Radiology Exams & Impressions: Radiology Procedures Category Date Time Status ABDOMEN AND PELVIS W CONTRAST [CT] Stat Exams 06/19/25 11:49 Completed Assessment/Plan (1) Appendicitis, acute Current Visit: Yes Status: Acute Qualifiers: Acute appendicitis type: unspecified acute appendicitis type Qualified Code(s): K35.80 - Unspecified acute appendicitis Assessment & Plan: -CT abdomen and pelvis demonstrated a mildly enlarged appendix with periappendiceal fat stranding and several small reactive mesenteric lymph nodes, without perforation, abscess, or free air. WBC mildly elevated at 10.4;CMP was unremarkable -Surgery consulted for laparoscopic appendectomy. -Zosyn for broad-spectrum preoperative coverage -Maintain NPO status and IV fluids until surgery unless stated otherwise by surgery -Pain control with Diluadid (patient unable to tolerate Morphine) - [place] post surgery -Zofran Prn -SCDs for now- hold Lovenox Code(s): K35.80 - UNSPECIFIED ACUTE APPENDICITIS (2) Leukocytosis Current Visit: Yes Status: Acute Assessment & Plan: -Mild at 10.4 secondary to acute appendicitis -see plan above Code(s): D72.829 - ELEVATED WHITE BLOOD CELL COUNT, UNSPECIFIED (3) History of thyroid cancer Current Visit: Yes Status: Acute Assessment & Plan: -Prior surgical history; no current thyroid-related symptoms -patient reports no home meds Code(s): Z85.850 - PERSONAL HISTORY OF MALIGNANT NEOPLASM OF THYROID (4) Hepatic steatosis Current Visit: Yes Status: Acute Assessment & Plan: -CT abdomen noted mild fatty infiltration with hepatomegaly -Recommend outpatient weight management and metabolic workup Code(s): K76.0 - FATTY (CHANGE OF) LIVER, NOT ELSEWHERE CLASSIFIED (5) Angiomyolipoma Current Visit: Yes Status: Acute Assessment & Plan: -CT showed an exophytic lesion with fat density in the left renal upper pole, consistent with angiomyolipoma -Benign lesion; urology or primary care follow-up recommended with repeat renal ultrasound to monitor for size progression -No acute management required Code(s): D17.9 - BENIGN LIPOMATOUS NEOPLASM, UNSPECIFIED (6) Lung granuloma Current Visit: Yes Status: Acute Assessment & Plan: -CT findings consistent with old granulomatous disease. -No active infection. No further imaging required unless respiratory symptoms develop Code(s): J84.10 - PULMONARY FIBROSIS, UNSPECIFIED (7) Sigmoid diverticulosis Current Visit: Yes Status: Acute Assessment & Plan: -CT noted non-inflamed sigmoid diverticula without pericolonic fat stranding or abscess -Educated patient on high-fiber diet postoperatively to prevent diverticulitis Code(s): K57.30 - DVRTCLOS OF LG INT W/O PERFORATION OR ABSCESS W/O BLEEDING (8) COPD (chronic obstructive pulmonary disease) Current Visit: No Status: Acute Qualifiers: Chronic bronchitis type: unspecified Assessment & Plan: -Baseline oxygenation adequate without need for supplemental O2 -No wheezing or increased work of breathing noted -RT to follow -Nebs/INH as needed - no home meds -Encourage IS post-op VTE: SCD PPI: Protonix Dispo: 1-2 days Code status: Full code Plan of care time spent > 40 mins Telemedicine Encounter - Telemedicine Encounter Telemedicine Encounter: "The entirety of this encounter was performed via Telemedicine" This visit was performed using real-time audio and video connection between my location and thepatients locationwith the assistance of a surrogateat the patients location. Written or verbal consent was obtained from the patient/guardian to perform this visit [facility] technology. Any patient questions regarding the telemedicine interaction were answered.
[2025-06-19] MEDS ORDERED: Zofran 4 MG/2 ML VIAL IV PRN (16:31)
[2025-06-19] MEDS ORDERED: TYLENOL 325 MG PO PRN (16:31)
[2025-06-19] MEDS ORDERED: PIPERACILLIN/TAZOBACTAM IV ONE ×2 (18:20→23:54)
[2025-06-19] MEDS ORDERED: Pre-Attached Lta Kit TP ONE (18:36)
[2025-06-19] MEDS ORDERED: DEXMEDETOMIDINE 80 MCG/20ML-NS IV ONE (18:48)
[2025-06-19] MEDS ORDERED: ROCURONIUM BROMIDE IV ONE (18:48)
[2025-06-19] MEDS ORDERED: TORAdol 30 mg Injection ONE (18:48)
[2025-06-19] MEDS ORDERED: propofoL IV ONE (18:48)
[2025-06-19] MEDS ORDERED: BRIDION 200MG/2ML IV ONE ×2 (18:48→20:15)
[2025-06-19] MEDS ORDERED: Versed 2 MG/2 ML Injection ONE (18:49)
[2025-06-19] MEDS ORDERED: SUBLIMAZE 250 MCG/5 ML ONE (18:50)
[2025-06-19] MEDS ORDERED: Xylocaine-Mpf 2% 5 Ml Vial ONE (18:51)
--- NOTE | 2025-06-19 19:11 | PCM.CONS ---
History of Present Illness - Reason for Consult Chief Complaint: appendicitis Requesting Provider: GIOVANY ORR MD Consulting Provider: ALIVIA KHAN MD History of Present Illness: is a 39 year old female. "- History of Present Illness Patient Subjective Stated Complaint: Pt. states, "I have had some pain my right side on and off for a few weeks but 4 days ago I started having pain in my rt. lower abdomen and it just keeps getting worse. It hurts worse when i'm moving around." Triage Nursing Assessment: Pt. ambulated to room without difficulty, A&Ox4, Skin P/W/D, Resp. even unlabored, abdomen soft, rebound tenderness in rt. lower quad., Physician History: Abdominal pain, onset of symptoms several weeks but progressively worse over the last 4 days, she denies any urinary symptoms including dysuria, she had any change in her bowels, Denies fever, Denies new vaginal discharge Timing/Duration: day(s) (4) Activities at Onset: none Abdominal Pain Onset Location: RLQ Pain Radiation: no radiation Severity of Pain-Max: moderate Severity of Pain-Current: moderate Modifying Factors: Improves With: nothing Associated Symptoms: denies symptoms Allergies/Adverse Reactions: No Known Drug Allergies Allergy (Verified 12/01/17 23:44) Home Medications: No Reportable Medications [No Reported Medications] 06/19/25 [History] Hx Tetanus, Diphtheria Vaccination/Date Given: Yes Hx Influenza Vaccination/Date Given: No Hx Pneumococcal Vaccination/Date Given: Yes Travel Risk - International Travel Have you traveled outside of the country in past 3 weeks: No - Emerging Infectious Disease Are you exhibiting symptoms associated with any current EIDs: No - Past Medical History Pertinent Past Medical History: Yes Neurological History: No Pertinent History ENT History: No Pertinent History Cardiac History: No Pertinent History Respiratory History: COPD Endocrine Medical History: No Pertinent History Musculoskeletal History: Degenerative Disk Disease GI Medical History: No Pertinent History History: No Pertinent History Psycho-Social History: No Pertinent History Female Reproductive Disorders: No Pertinent History Other Medical History: MS-patient states does not currently have. had it for about 5 years and it disappeared. meningitis 2000 - Past Surgical History Past Surgical History: Yes Neuro Surgical History: No Pertinent History Cardiac: No Pertinent History Respiratory: No Pertinent History Gastrointestinal: Cholecystectomy Genitourinary: No Pertinent History Musculoskeletal: Other Female Surgical History: Tubal Ligation, Other Other Surgical History: uterine ablasion; spinal surgery, half of thryroid removed 2003 - Female History Hx Last Menstrual Period: LAST MONTH Hx Now: No - Social History Smoking Status: Former smoker Exposure to second hand smoke: Yes Drug Use: none - Social Determinants of Health Will the patient participate in the screening: Declined to provide - Nursing Vital Signs Nursing Vital Signs: " Medications & Allergies Home Medications: Home Medication List No Reportable Medications [No Reported Medications] 06/19/25 [History Confirmed 06/19/25] Allergies/Adverse Reactions: Allergies Allergy/AdvReac Type Severity Reaction Status Date / Time morphine AdvReac BURNING IN Verified 06/19/25 19:04 CHEST - Past Medical History Past Medical History: Yes Neurological History: No Pertinent History ENT History: No Pertinent History Cardiac History: No Pertinent History Respiratory History: COPD Endocrine Medical History: No Pertinent History Musculoskelatal History: Degenerative Disk Disease GI Medical History: No Pertinent History History: No Pertinent History Pyscho-Social History: No Pertinent History Reproductive Disorders: No Pertinent History Comment: MS-patient states does not currently have. had it for about 5 years and it disappeared. meningitis 2000 - Female History Hx Last Menstrual Period: LAST MONTH Are you now?: No - Past Surgical History Past Surgical History: Yes Neuro Surgical History: No Pertinent History Cardiac History: No Pertinent History Respiratory Surgery: No Pertinent History GI Surgical History: Cholecystectomy Genitourinary Surgical Hx: No Pertinent History Musculskeletal Surgical Hx: Other Female Surgical History: Tubal Ligation, Other Other Surgical History: uterine ablasion; spinal surgery, half of thryroid removed 2003 Significant Family History: cancer, diabetes, stroke - Social History Smoking Status: Former smoker How long have you smoked: 14 years Exposure to second hand smoke: Yes Alcohol: None Drug Use: none - Social Determinants of Health Will the patient participate in the screening: Declined to provide Do you worry about a steady place to live?: No Do you have any problems with any of the following?: No known problems In the past 12 months,have you had to go without utilities?: No Have you or anyone in your house had to go without enough: No Transportation Issues: No Has anyone in your support network made you feel unsafe?: No Does the patient want assistance with any of the above?: No - Physical Exam Vital Signs: Vital Signs - 24 hr Temp Pulse Resp BP BP Pulse Ox 06/19/25 19:08 97.7 F 68 20 95/49 88 L 06/19/25 18:46 73 16 105/51 95 06/19/25 17:46 73 16 95 06/19/25 15:59 97.3 F 75 18 105/51 96 06/19/25 15:00 75 18 122/65 95 06/19/25 14:49 97 06/19/25 14:31 94/40 97 06/19/25 14:30 97 06/19/25 14:20 96 06/19/25 14:10 96 06/19/25 14:02 78 97 06/19/25 13:30 114/60 95 06/19/25 13:17 80 109/57 97 06/19/25 13:16 97 06/19/25 12:30 79 125/75 06/19/25 12:27 82 18 115/75 98 06/19/25 12:01 78 18 96/57 99 06/19/25 11:31 80 18 93/58 97 06/19/25 10:35 97.7 F 81 18 110/68 96 Additional Findings: 06/19/25 19:10 nad no scleral icterus neck symmetric nonlabored resps reg rate obese soft, ttp rlq localized guarding and rebound. minimal edema gcs 15 06/19/25 19:22 Results - Labs Lab/Micro Results: Lab Results-Last 24 Hours 06/19/25 06/19/25 06/19/25 Range/Units 11:49 12:15 12:15 WBC 10.4 H (3.98-10.04) x10^3/uL RBC 4.92 (3.93-5.22) x10^6/uL Hgb 14.6 (11.2-15.7) g/dL Hct 46.0 H (34.1-44.9) % MCV 93.5 (79.4-94.8) fL MCH 29.7 (25.6-32.2) pg MCHC 31.7 L (32.2-35.5) g/dL RDW 12.8 (11.7-14.4) % Plt Count 272 (182-369) x10^3/uL MPV 9.7 (9.4-12.3) fL Gran % 73.6 H (34.0-71.1) % Immature Gran % (Auto) 0.2 (0.001-0.429) % Nucleat RBC Rel Count 0.0 (0.00-0.2) % Eos # (Auto) 0.15 (0.04-0.36) x10^3/uL Immature Gran # (Auto) 0.02 (0.001-0.031) x10^3u/L Absolute Lymphs (auto) 1.98 (1.18-3.74) x10^3/uL Absolute Monos (auto) 0.56 (0.24-0.86) x10^3/uL Absolute Nucleated RBC 0.00 (0.00-0.012) x10^3u/L Lymphocytes % 19.1 L (19.3-51.7) % Monocytes % 5.4 (4.7-12.5) % Eosinophils % 1.4 (0.7-5.8) % Basophils % 0.3 (0.1-1.2) % Absolute Granulocytes 7.62 H (1.56-6.13) x10^3/uL Basophils # 0.03 (0.01-0.08) x10^3/uL Sodium 135 (135-145) mmol/L Potassium 4.0 (3.5-5.1) mmol/L Chloride 106 (98-107) mmol/L Carbon Dioxide 23 (22-30) mmol/L Anion Gap 10.0 (5-15) MEQ/L BUN 11 (7-17) mg/dL Creatinine 0.55 (0.52-1.04) mg/dL Estimated GFR 120.3 ML/MIN Glucose 101 (74-106) mg/dL Calcium 8.9 (8.4-10.2) mg/dL Total Bilirubin 0.40 (0.2-1.3) mg/dL AST 30 (14-36) U/L ALT 37 H (0-35) U/L Alkaline Phosphatase 112 (38-126) U/L Serum Total Protein 7.6 (6.3-8.2) g/dL Albumin 4.5 (3.5-5.0) g/dL Lipase 40 (23-300) U/L Urine Color Yellow (Yellow) Urine Appearance Clear (Clear) Urine pH 5.5 (4.6-8.0) Ur Specific [place] 1.010 (1.005-1.030) Urine Protein Negative (Negative) Urine Glucose (UA) Negative (Negative) mg/dL Urine Ketones Negative (Negative) Urine Blood Negative (Negative) Urine Nitrite Negative (Negative) Urine Bilirubin Negative (Negative) Urine Urobilinogen 0.2 (0.2) mg/dL Ur Leukocyte Esterase Negative (Negative) U Hyaline Cast (Auto) NONE SEEN (0-2) /LPF Urine Microscopic RBC 0-2 (0-5) /HPF Urine Microscopic WBC 0-2 (0-5) /HPF Ur Epithelial Cells Few (None Seen) /HPF Urine Bacteria None Seen (None Seen) /HPF Urine Culture Reflexed NO (NO) - Radiology Impressions Radiology Exams & Impressions: Radiology Procedures Category Date Time Status ABDOMEN AND PELVIS W CONTRAST [CT] Stat Exams 06/19/25 11:49 Completed - Other Procedures and Tests Respiratory Therapy 06/19/25 16:31 Incentive Spirometry UD Assessment/Plan (1) Appendicitis, acute Current Visit: Yes Status: Acute Qualifiers: Acute appendicitis type: unspecified acute appendicitis type Qualified Code(s): K35.80 - Unspecified acute appendicitis Assessment & Plan: ct scan confirmed acute appendicitis. not the best story. localized tenderness. wbc borderline.ct scan periappendiceal stranding. -to or lap appy, possible open. Code(s): K35.80 - UNSPECIFIED ACUTE APPENDICITIS
[2025-06-19] MEDS ORDERED: Sensorcaine 0.25% 10 ML ONE ×2 (19:37→20:11)
[2025-06-19] MEDS ORDERED: ROBINUL ONE (20:12)
[2025-06-19] MEDS ORDERED: ATROPINE SULFATE 1MG ONE (20:14)
[2025-06-19] MEDS ORDERED: SUBLIMAZE 100 MCG/2 ML ONE (20:54)
[2025-06-19] MEDS ORDERED: DILAUDID 0.5 MG/0.5 ML SYRINGE ONE (21:14)
[2025-06-19] MEDS ORDERED: MORPHINE SULFATE 4 MG INJ IV PRN (22:02)
[2025-06-19] MEDS: NORCO 5/325 MG PO PRN (22:11)
[2025-06-20] MEDS: Hydromorphone 1 mg/ml Injection IV PRN (00:33)
[2025-06-20] MEDS: DUONEB 0.5-3 MG/3 ml Neb IH PRN (03:48)
[2025-06-20 04:55] LABS: BASOPHIL % 0.2 % (0.1-1.2); Basophil (Absolute #) 0.02 x10^3/uL (0.01-0.08); Eosinophil (Absolute #) 0 x10^3/uL (0.04-0.36); Hematocrit 43.7 % (34.1-44.9); Hemoglobin 13.8 g/dL (11.2-15.7); IMMATURE GRAN # 0.05 x10^3u/L (0.001-0.031); IMMATURE GRAN % 0.4 % (0.001-0.429); Lymphocyte (Absolute #) 0.74 x10^3/uL (1.18-3.74); Mean Corpuscular Hemoglobin 29.9 pg (25.6-32.2); Mean Corpuscular Hgb Concent. 31.6 g/dL (32.2-35.5); Monocyte (Absolute #) 0.13 x10^3/uL (0.24-0.86); NUCLEATED RBC # 0.00 x10^3u/L (0.00-0.012); NUCLEATED RBC % 0.0 % (0.00-0.2); Platelet Count 188 x10^3/uL (182-369); Red Blood Count 4.62 x10^6/uL (3.93-5.22); White Blood Count 12.3 x10^3/uL (3.98-10.04)
[2025-06-20 05:09] LABS: Calcium 8.4 mg/dL (8.4-10.2); Carbon Dioxide 18.0 mmol/L (22-30); Creatinine 1 0.69 mg/dL (0.52-1.04); EST GLOMERULAR FILTRATION RATE 113.9 ML/MIN; Glucose 227.0 mg/dL (74-106); Potassium 4.5 mmol/L (3.5-5.1); SGOT/AST 36.0 U/L (14-36); SGPT/ALT 42.0 U/L (0-35); Total Protein 6.7 g/dL (6.3-8.2)
[2025-06-20] MEDS ORDERED: PIPERACILLIN/TAZOBACTAM IV ONE (05:41)
[2025-06-20 06:49] LABS: Slide Review 1 YES
[2025-06-20 07:07] VITALS: RESP 16
[2025-06-20] MEDS ORDERED: DUONEB 0.5-3 MG/3 ml Neb IH PRN (07:08)
--- NOTE | 2025-06-20 10:07 | PCM.DS ---
Discharge Summary Date of Admission: 06/19/25 15:50 Date of Discharge: 06/20/25 Admitting Physician: GIOVANY ORR MD Consults: Consults on Case 06/19/25 15:26 Consult Surgery ROUTINE Primary Care Provider: GRACIELA JARAMILLO Allergies Allergies morphine Adverse Reaction (Verified 06/19/25 19:04) BURNING IN [facility] Hospital Summary - Hospital Course Hospital Course: A 39-year-old female with a past medical history significant for COPD (on room air at baseline) and prior thyroid cancer status post partial thyroidectomy in 2000, not currently on any home medications, presented to the emergency department on June 19, 2025, with complaints of right lower quadrant abdominal pain. The pain began abruptly several days prior and progressively worsened. She described it as moderate, stabbing, and constant, radiating to the mid-epigastric region. The pain was exacerbated by movement or lying flat and improved when standing. She denied associated nausea, vomiting, fever, chest pain, dyspnea, dizziness, headache, or changes in bowel habits. On presentation, her vital signs were stable. Laboratory evaluation revealed a mild leukocytosis with a WBC of 10.4, and her comprehensive metabolic panel was unremarkable. Urinalysis was negative for infection or hematuria. CT scan of the abdomen and pelvis demonstrated a mildly enlarged appendix with periappendiceal fat stranding and small reactive lymph nodes, consistent with uncomplicated acute appendicitis. Additional findings included mild fatty hepatomegaly, a small left upper pole renal angiomyolipoma, a right lower lobe calcified granuloma, a calcified posterior mediastinal lymph node, and uncomplicated sigmoid diverticulosis. In the emergency department, the patient received intravenous fluids, morphine for pain control, and ondansetron for nausea. General Surgery was consulted, and the patient underwent a laparoscopic appendectomy on June 19, 2025, without intraoperative complications. Postoperatively, she tolerated oral intake, ambulated without difficulty, and reported mild left lower quadrant incisional pain on postoperative day two. Her pain was well controlled with oral analgesics. She remained afebrile and hemodynamically stable, and her incision sites were clean, dry, and intact. On June 20, 2025, the patient was deemed stable for discharge. She was advised to continue acetaminophen 650 mg by mouth every six hours as needed for pain and oxycodone 5 mg by mouth every six hours as needed for severe pain, for a limited duration. She was instructed to keep the surgical sites clean and dry, avoid submerging in water for one week, and refrain from heavy lifting greater than 10 pounds for two weeks. She was counseled to monitor for fever, increasing pain, redness, drainage, or swelling at the incision site, and to return to the emergency department for worsening abdominal pain, persistent vomiting, or any other concerning symptoms. Follow-up was arranged with the General Surgery clinic in one to two weeks and with her primary care provider as needed. - Vitals & Intake/Output Vital Signs: Vital Signs Temperature 98.8 F 06/20/25 07:06 Pulse Rate 74 06/20/25 07:06 Respiratory Rate 16 06/20/25 07:06 Blood Pressure 109/59 06/20/25 07:06 O2 Sat by Pulse Oximetry 94 L 06/20/25 07:06 Intake & Output: Intake & Output 06/17/25 06/18/25 06/19/25 06/20/25 11:59 11:59 10:59 11:59 Intake Total 1598 Balance 1598 Weight 134.037 kg 133 kg - Lab Result Diagrams: 06/20/25 04:45 06/20/25 04:45 Lab Results-Last 24 Hrs: Lab Results-Last 24 Hours 06/19/25 06/19/25 06/19/25 Range/Units 11:49 12:15 12:15 WBC 10.4 H (3.98-10.04) x10^3/uL RBC 4.92 (3.93-5.22) x10^6/uL Hgb 14.6 (11.2-15.7) g/dL Hct 46.0 H (34.1-44.9) % MCV 93.5 (79.4-94.8) fL MCH 29.7 (25.6-32.2) pg MCHC 31.7 L (32.2-35.5) g/dL RDW 12.8 (11.7-14.4) % Plt Count 272 (182-369) x10^3/uL MPV 9.7 (9.4-12.3) fL Gran % 73.6 H (34.0-71.1) % Immature Gran % (Auto) 0.2 (0.001-0.429) % Nucleat RBC Rel Count 0.0 (0.00-0.2) % Eos # (Auto) 0.15 (0.04-0.36) x10^3/uL Immature Gran # (Auto) 0.02 (0.001-0.031) x10^3u/L Absolute Lymphs (auto) 1.98 (1.18-3.74) x10^3/uL Absolute Monos (auto) 0.56 (0.24-0.86) x10^3/uL Absolute Nucleated RBC 0.00 (0.00-0.012) x10^3u/L Lymphocytes % 19.1 L (19.3-51.7) % Monocytes % 5.4 (4.7-12.5) % Eosinophils % 1.4 (0.7-5.8) % Basophils % 0.3 (0.1-1.2) % Absolute Granulocytes 7.62 H (1.56-6.13) x10^3/uL Basophils # 0.03 (0.01-0.08) x10^3/uL Sodium 135 (135-145) mmol/L Potassium 4.0 (3.5-5.1) mmol/L Chloride 106 (98-107) mmol/L Carbon Dioxide 23 (22-30) mmol/L Anion Gap 10.0 (5-15) MEQ/L BUN 11 (7-17) mg/dL Creatinine 0.55 (0.52-1.04) mg/dL Estimated GFR 120.3 ML/MIN Glucose 101 (74-106) mg/dL Calcium 8.9 (8.4-10.2) mg/dL Total Bilirubin 0.40 (0.2-1.3) mg/dL AST 30 (14-36) U/L ALT 37 H (0-35) U/L Alkaline Phosphatase 112 (38-126) U/L Serum Total Protein 7.6 (6.3-8.2) g/dL Albumin 4.5 (3.5-5.0) g/dL Lipase 40 (23-300) U/L Urine Color Yellow (Yellow) Urine Appearance Clear (Clear) Urine pH 5.5 (4.6-8.0) Ur Specific [place] 1.010 (1.005-1.030) Urine Protein Negative (Negative) Urine Glucose (UA) Negative (Negative) mg/dL Urine Ketones Negative (Negative) Urine Blood Negative (Negative) Urine Nitrite Negative (Negative) Urine Bilirubin Negative (Negative) Urine Urobilinogen 0.2 (0.2) mg/dL Ur Leukocyte Esterase Negative (Negative) U Hyaline Cast (Auto) NONE SEEN (0-2) /LPF Urine Microscopic RBC 0-2 (0-5) /HPF Urine Microscopic WBC 0-2 (0-5) /HPF Ur Epithelial Cells Few (None Seen) /HPF Urine Bacteria None Seen (None Seen) /HPF Urine Culture Reflexed NO (NO) Slides for Path Review 06/20/25 06/20/25 Range/Units 04:45 04:45 WBC 12.3 H (3.98-10.04) x10^3/uL RBC 4.62 (3.93-5.22) x10^6/uL Hgb 13.8 (11.2-15.7) g/dL Hct 43.7 (34.1-44.9) % MCV 94.6 (79.4-94.8) fL MCH 29.9 (25.6-32.2) pg MCHC 31.6 L (32.2-35.5) g/dL RDW 12.9 (11.7-14.4) % Plt Count 188 (182-369) x10^3/uL MPV 11.0 (9.4-12.3) fL Gran % 92.3 H (34.0-71.1) % Immature Gran % (Auto) 0.4 (0.001-0.429) % Nucleat RBC Rel Count 0.0 (0.00-0.2) % Eos # (Auto) 0 L (0.04-0.36) x10^3/uL Immature Gran # (Auto) 0.05 H (0.001-0.031) x10^3u/L Absolute Lymphs (auto) 0.74 L (1.18-3.74) x10^3/uL Absolute Monos (auto) 0.13 L (0.24-0.86) x10^3/uL Absolute Nucleated RBC 0.00 (0.00-0.012) x10^3u/L Lymphocytes % 6.0 L (19.3-51.7) % Monocytes % 1.1 L (4.7-12.5) % Eosinophils % 0.0 L (0.7-5.8) % Basophils % 0.2 (0.1-1.2) % Absolute Granulocytes 11.37 H (1.56-6.13) x10^3/uL Basophils # 0.02 (0.01-0.08) x10^3/uL Sodium 134 L (135-145) mmol/L Potassium 4.5 (3.5-5.1) mmol/L Chloride 109 H (98-107) mmol/L Carbon Dioxide 18 L (22-30) mmol/L Anion Gap 12.5 (5-15) MEQ/L BUN 14 (7-17) mg/dL Creatinine 0.69 (0.52-1.04) mg/dL Estimated GFR 113.9 ML/MIN Glucose 227 H (74-106) mg/dL Calcium 8.4 (8.4-10.2) mg/dL Total Bilirubin 0.20 (0.2-1.3) mg/dL AST 36 (14-36) U/L ALT 42 H (0-35) U/L Alkaline Phosphatase 90 (38-126) U/L Serum Total Protein 6.7 (6.3-8.2) g/dL Albumin 4.0 (3.5-5.0) g/dL Lipase (23-300) U/L Urine Color (Yellow) Urine Appearance (Clear) Urine pH (4.6-8.0) Ur Specific [place] (1.005-1.030) Urine Protein (Negative) Urine Glucose (UA) (Negative) mg/dL Urine Ketones (Negative) Urine Blood (Negative) Urine Nitrite (Negative) Urine Bilirubin (Negative) Urine Urobilinogen (0.2) mg/dL Ur Leukocyte Esterase (Negative) U Hyaline Cast (Auto) (0-2) /LPF Urine Microscopic RBC (0-5) /HPF Urine Microscopic WBC (0-5) /HPF Ur Epithelial Cells (None Seen) /HPF Urine Bacteria (None Seen) /HPF Urine Culture Reflexed (NO) Slides for Path Review YES - Radiology Exams Ordered Rad Exams-Entire Visit: Radiology Procedures Category Date Time Status ABDOMEN AND PELVIS W CONTRAST [CT] Stat Exams 06/19/25 11:49 Completed - Procedures and Test Procedures and Tests throughout Hospitalization: Therapy Orders & Screens 06/19/25 16:31 Incentive Spirometry UD Comment: Diagnosis: appendicitis Respiratory Therapy Consult ONCE Comment: Reason For Exam: Diagnosis: appendicitis 06/20/25 03:50 Respiratory Therapy Assessment DAILY Comment: Diagnosis: appendicitis Discharge Exam General Appearance: no apparent distress, alert, obese Neurologic Exam: alert, oriented x 3, cooperative, normal mood/affect, nml cerebellar function, sensation nml, No motor deficits Eye Exam: PERRL, EOMI, eyes nml inspection Ears, Nose, Throat Exam: normal ENT inspection, pharynx normal, moist mucous membranes Neck Exam: normal inspection, non-tender, supple, full range of motion Respiratory Exam: normal breath sounds, lungs clear, No respiratory distress Cardiovascular Exam: regular rate/rhythm, normal heart sounds Gastrointestinal/Abdomen Exam: soft, tenderness (LLQ), distention, No mass Pelvic Exam: deferred Rectal Exam: deferred Back Exam: normal inspection, normal range of motion, No CVA tenderness, No vertebral tenderness Extremity Exam: normal inspection, normal range of motion Skin Exam: normal color, warm, dry Wound Assessment: Skin/Wound Assessment Wound/Incision Assessment Start: 06/19/25 20:00 Text: Status: Active Freq: Q6H Protocol: Document 06/20/25 08:00 DS (Rec: 06/20/25 08:45 DS [id number]) Wound/Incision Assessment Abdomen Wound Assessment Shift Assessment Wound Type Incision Wound Stage Non Pressure Wound Dressing Status Dry & Intact Primary Dressing Gauze Pads Secondary Dressing tegaderm Comment surgical sites to abdomen x 4 - dressing CDI Wound Photo Photo Taken No Final Diagnosis/Problem List - Final Discharge Diagnosis/Problem (1) Appendicitis, acute Current Visit: Yes Status: Acute Code(s): K35.80 - UNSPECIFIED ACUTE APPENDICITIS (2) Angiomyolipoma Current Visit: Yes Status: Acute Code(s): D17.9 - BENIGN LIPOMATOUS NEOPLASM, UNSPECIFIED (3) Hepatic steatosis Current Visit: Yes Status: Acute Code(s): K76.0 - FATTY (CHANGE OF) LIVER, NOT ELSEWHERE CLASSIFIED (4) History of thyroid cancer Current Visit: Yes Status: Acute Code(s): Z85.850 - PERSONAL HISTORY OF MALIGNANT NEOPLASM OF THYROID (5) Leukocytosis Current Visit: Yes Status: Acute Code(s): D72.829 - ELEVATED WHITE BLOOD CELL COUNT, UNSPECIFIED (6) Lung granuloma Current Visit: Yes Status: Acute Code(s): J84.10 - PULMONARY FIBROSIS, UNSPECIFIED (7) Sigmoid diverticulosis Current Visit: Yes Status: Acute Code(s): K57.30 - DVRTCLOS OF LG INT W/O PERFORATION OR ABSCESS W/O BLEEDING (8) COPD (chronic obstructive pulmonary disease) Current Visit: No Status: Acute Assessment & Plan: (1) Appendicitis, acute Current Visit: Yes Status: Acute Qualifiers: Acute appendicitis type: unspecified acute appendicitis type Qualified Code(s): K35.80 - Unspecified acute appendicitis Assessment & Plan: -CT abdomen and pelvis demonstrated a mildly enlarged appendix with periappendiceal fat stranding and several small reactive mesenteric lymph nodes, without perforation, abscess, or free air. WBC mildly elevated at 10.4;CMP was unremarkable -Surgery consulted for laparoscopic appendectomy. -Zosyn for broad-spectrum preoperative coverage -Maintain NPO status and IV fluids until surgery unless stated otherwise by surgery -Pain control with Diluadid (patient unable to tolerate Morphine) - [place] post surgery -Zofran Prn -SCDs for now- hold Lovenox 06/20 - POD #2 from lap appy - CBC, CMP reviewed - If ok with GS will d/c home today. Code(s): K35.80 - UNSPECIFIED ACUTE APPENDICITIS (2) Leukocytosis Current Visit: Yes Status: Acute Assessment & Plan: -Mild at 10.4 secondary to acute appendicitis -see plan above 11/3 - Post op surgery lap appy - WBC 12.3 Code(s): D72.829 - ELEVATED WHITE BLOOD CELL COUNT, UNSPECIFIED (3) History of thyroid cancer Current Visit: Yes Status: Acute Assessment & Plan: -Prior surgical history; no current thyroid-related symptoms -patient reports no home meds Code(s): Z85.850 - PERSONAL HISTORY OF MALIGNANT NEOPLASM OF THYROID (4) Hepatic steatosis Current Visit: Yes Status: Acute Assessment & Plan: -CT abdomen noted mild fatty infiltration with hepatomegaly -Recommend outpatient weight management and metabolic workup Code(s): K76.0 - FATTY (CHANGE OF) LIVER, NOT ELSEWHERE CLASSIFIED (5) Angiomyolipoma Current Visit: Yes Status: Acute Assessment & Plan: -CT showed an exophytic lesion with fat density in the left renal upper pole, consistent with angiomyolipoma -Benign lesion; urology or primary care follow-up recommended with repeat renal ultrasound to monitor for size progression -No acute management required Code(s): D17.9 - BENIGN LIPOMATOUS NEOPLASM, UNSPECIFIED (6) Lung granuloma Current Visit: Yes Status: Acute Assessment & Plan: -CT findings consistent with old granulomatous disease. -No active infection. No further imaging required unless respiratory symptoms develop Code(s): J84.10 - PULMONARY FIBROSIS, UNSPECIFIED (7) Sigmoid diverticulosis Current Visit: Yes Status: Acute Assessment & Plan: -CT noted non-inflamed sigmoid diverticula without pericolonic fat stranding or abscess -Educated patient on high-fiber diet postoperatively to prevent diverticulitis Code(s): K57.30 - DVRTCLOS OF LG INT W/O PERFORATION OR ABSCESS W/O BLEEDING (8) COPD (chronic obstructive pulmonary disease) Current Visit: No Status: Acute Qualifiers: Chronic bronchitis type: unspecified Assessment & Plan: -Baseline oxygenation adequate without need for supplemental O2 -No wheezing or increased work of breathing noted -RT to follow -Nebs/INH as needed - no home meds -Encourage IS post-op (9) Morbid obesity Current Visit: Yes Status: Chronic Assessment & Plan: - Advised diet and exercise control Code(s): E66.01 - MORBID (SEVERE) OBESITY DUE TO EXCESS CALORIES - Discharge Discharge Date: 06/20/25 Disposition: Home, Self-Care Condition: Stable Prescriptions: New Hydrocodone/Acetaminophen [Hydrocodone-Acetamin 5-325 mg] 1 tab PO Q6HPRN PRN 7 Days #20 tablet MDD 4 PRN Reason: Pain Amox Tr/Potass Clav. 875 mg [Augmentin 875-125 Tablet] 875 mg PO BID 4 Days #8 tablet Instructions: Appendectomy - Discharge instructions Follow up with: ALIVIA KHAN MD [ACTIVE STAFF, GENERAL SURGERY] - 06/30/25 10:00 am Referral Note: [facility] GRACIELA JARAMILLO [Primary Care Provider, FAMILY PRACTICE] - 06/27/25 1:30 pm Referral Note: [facility] [facility]; will be seen by one of Dr. Corrina Tariq's colleagues due to no appointment with her available until the end of the month.
[2025-06-20 11:54] VITALS: BP 120/65; PULSE 70; TEMP 98.6; O2SAT 99
--- NOTE | 2025-06-20 19:04 | OP ---
SURGERY DATE/TIME: 06/19/[id number] PREOPERATIVE DIAGNOSIS: Appendicitis. POSTOPERATIVE DIAGNOSIS: Appendicitis, nonperforated. PROCEDURE: Laparoscopic appendectomy. SURGEON: Mauro Arreguin MD ANESTHESIA: General. ESTIMATED BLOOD LOSS: Minimal. PATIENT CONDITION: Stable. COMPLICATIONS: None. SPECIMEN: Appendix. INDICATIONS: The patient is a 39-year-old female who presents, actually had several days where she was not feeling well but then worsening abdominal pain migrating to the right lower quadrant, localized, guarding on exam. Mild leukocytosis. CT scan with periappendiceal stranding. Discussion with patient risks of infection, bleeding, injury to nearby structures, hernia, negative exam, nonoperative option. She elected to proceed with appendectomy. FINDINGS: Actually a less than 1 cm, almost looks like mucin adjacent to the appendix. No obvious perforation. Dilated tip of the appendix. Totally healthy base. DESCRIPTION OF PROCEDURE AND FINDINGS: Patient brought to the operating room, general anesthesia induced, routinely positioned, prepped, draped, time-out performed, received preoperative antibiotic. The 5 mm Optiview trocar placed in left upper quadrant. The abdomen surveyed. The 5 mm supraumbilical, 5 mm suprapubic, and 12 mm left lower quadrant trocars placed. The abdomen surveyed. There was some omentum adhered to anterior abdominal wall taken down via LigaSure. Then, the omentum was able to be placed away and then the appendix was visualized. There was a healthy base of the appendix. There was a dilated tip of the appendix, mild induration there. Then, there was actually less than 1 cm, almost looks like mucin, which was removed intact but this was separate from the appendix, not really attached to anything, but the mesoappendix had been taken with LigaSure, the base of the appendix taken with a white load RAJNI stapler. Specimen was placed in a bag, removed through the 12 trocar site. Both were sent for pathology. The right lower quadrant reinspected. Healthy staple line, good hemostasis. The 12 trocar site closed with 0 Vicryl interrupted suture passer. The trocars were removed. Marcaine had been injected. Skin closed with 4-0 Vicryl suture. Steri-Strips, sterile dressings applied. All counts were correct. Patient tolerated the procedure well. Plan is for extubated.
== END 2025-06-20 13:55 | disposition home or self-care (01) ==
LOC: ED 10:35 → MED SURG 15:50
PROVIDERS: ADMIT Internal Medicine; ATTEND Internal Medicine
DX: K35.80 Unspecified acute appendicitis (principal); D17.9 Benign lipomatous neoplasm, unspecified; K76.0 Fatty (change of) liver, not elsewhere classified; J44.9 Chronic obstructive pulmonary disease, unspecified; R10.31 Right lower quadrant pain; D72.829 Elevated white blood cell count, unspecified; Z85.850 Personal history of malignant neoplasm of thyroid; J84.10 Pulmonary fibrosis, unspecified; K57.30 Diverticulosis of large intestine without perforation or abscess without bleeding; E66.01 Morbid (severe) obesity due to excess calories